=== PATIENT | female | born 1990 | race Caucasian/White ===

== ENCOUNTER → 2022-02-25 | Outpatient (CLI) | payer OTHER ==
--- NOTE | 2022-02-25 09:39 | US ---
EXAMINATION TYPE: US abdomen complete DATE OF EXAM: 02/25/2022 COMPARISON: NONE CLINICAL HISTORY: 31-year-old female R10.30 lower abd pain. Patient describes umbilicus pain TECHNIQUE: Multiple sonographic images of the abdomen are obtained. FINDINGS: EXAM MEASUREMENTS: Liver Length: 14.0 cm Gallbladder Wall: 0.1 cm CBD: 0.4 cm Spleen: 11.5 cm Right Kidney: 10.3 x 3.6 x 5.5 cm Left Kidney: 10.2 x 4.3 x 4.7 cm Pancreas: Obscured by bowel gas Liver: wnl Gallbladder: wnl Evidence for sonographic Gonzalez's sign: no CBD: wnl Spleen: wnl Right Kidney: Partially obscured by overlying bowel gas, portions visualized wnl Left Kidney: Partially obscured by overlying bowel gas, portions visualized wnl Upper IVC: wnl Abd Aorta: wnl IMPRESSION: Limited visualization of portions of the kidneys and pancreas due to bowel gas shadowing. Otherwise, no discrete abnormality is seen.
--- NOTE | 2022-02-25 09:57 | US ---
EXAMINATION TYPE: US transvaginal DATE OF EXAM: 02/25/2022 COMPARISON: NONE CLINICAL HISTORY: 31-year-old female R10.30 lower abd pain. Patient states umbilicus pain. TECHNIQUE: Transvaginal (TV). Date of LMP: 01-27-22 FINDINGS: EXAM MEASUREMENTS: Uterus: 10.1 x 5.2 x 6.6 cm Endometrial Stripe: 1.3 cm Right Ovary: 3.7 x 2.0 x 2.8 cm for a volume of 11.0 mL. Left Ovary: 2.0 x 1.7 x 1.7 cm for a volume of 2.9 mL. 1. Uterus: Anteverted and otherwise wnl. 8 mm cervical nabothian cyst is noted. 2. Endometrium: wnl 3. Right Ovary: wnl 4. Left Ovary: wnl 5. Bilateral Adnexa: wnl 6. Posterior cul-de-sac: wnl IMPRESSION: Unremarkable transvaginal sonographic examination of the pelvis. The endometrial stripe thickness of 1.3 cm should correspond to the secretory phase of the menstrual cycle.
== END | disposition home or self-care (01) ==
LOC: RADUSWWP 06:56
PROVIDERS: ATTEND Family Medicine
DX: R14.3 Flatulence (principal); R10.30 Lower abdominal pain, unspecified
CPT/HCPCS: 76700; 76830